=== PATIENT | female | born 1950 | race Caucasian/White ===

== ENCOUNTER 2017-01-18 12:56 | Day surgery (SDC) | payer OTHER ==
[~2017-01-18] VITALS: Ht 162.6 cm; Wt 65.0 kg
[~2017-01-18 12:56] MED LIST: ACET1TAB12 PO; BENZ100C8 PO; CALC600T12 PO; CELE50CA PO; CHOL500050 PO; ESTR0.3T2 PO; GABA-500 PO; GABA-502 PO; Gadopentetate Dimeglumine 5 mL Inj IVPUSH ONE; HYDR12.5 PO; INSU100C8 SUBQ; INSU100V7 SUBQ; LANS30CA14 PO; LISI-567 PO; LORA10CA PO; METF500T4 PO; MULT-1018 PO; PREG50CA PO; PROP60CA2 PO; SIMV10TA4 PO; TIZA2CAP9 PO
[2017-01-18] MEDS ORDERED: MethylprednisoLONE Depot 80 mg/mL Inj ONE (12:57)
[2017-01-18 13:15] VITALS: BP 107/62; PULSE 68; RESP 14; O2SAT 99
[2017-01-18] MEDS ORDERED: LIDO700A33 TOPICAL (13:27)
[2017-01-18 13:49] VITALS: BP 129/67; PULSE 64; RESP 16; O2SAT 98
--- NOTE | 2017-01-18 15:38 | PCM.PROC ---
Procedure Note Date of Service: Jan 18, 2017 Pre Procedure Diagnosis: PROCEDURE: Lumbar Interlaminar epidural steroid injection. L4-L5 ASA / ANTI-COAGULATION . No asa x 7 days. Iodine free contrast PRE-PROCEDURE DIAGNOSIS: Lumbar radiculopathy POST-PROCEDURE DIAGNOSIS: same INDICATION: 67-year-old patient with leg pain consistent with lumbar radiculopathy PERFORMED BY: Josef Felix MD DESCRIPTION OF PROCEDURE: Patient was met in the holding area. Consent was signed, site was confirmed and all questions were answered. Patient was taken to the procedure suite and placed prone on the procedure table. Area was prepped and draped in sterile fashion. Local anesthesia with 1% lidocaine was injected. An 18-gauge Touhy needle was advanced toward the interlaminar space using fluoroscopic guidance after optimizing the AP view. A loss of resistance syringe was attached as we approached the epidural space in the lateral view. After [id number] was obtained, radioopaque contrast was injected under live fluro which confirmed epidural placement without intravascular uptake. Then , x80 mg depomedrol was injected without difficulty. ANESTHESIA: Local. EBL: None. No Blood Products Used COMPLICATIONS: None SPECIMENS: None POST-PROCEDURE DISPOSITION: Patient was returned to the holding area in stable condition. They were discharged home when all discharge criteria were met. Evaluation/Physical Exam before discharge revealed: DISCHARGE MEDICATIONS: FOLLOW UP: Return to clinic in 8 weeks. Josef Felix MD * Pain Management * Anesthesiology Josef Felix MD Jan 18, 2017 15:38
== END 2017-01-18 23:59 | disposition home or self-care (01) ==
LOC: END 12:56
PROVIDERS: ATTEND Anesthesiology Pain Medicine
DX: M54.16 Radiculopathy, lumbar region (principal); M48.06 Spinal stenosis, lumbar region; K21.9 Gastro-esophageal reflux disease without esophagitis; F41.9 Anxiety disorder, unspecified; E10.9 Type 1 diabetes mellitus without complications; F17.210 Nicotine dependence, cigarettes, uncomplicated; M79.7 Fibromyalgia; Z79.84 Long term (current) use of oral hypoglycemic drugs; Z79.4 Long term (current) use of insulin
CPT/HCPCS: 62323; A9579; J1040